=== PATIENT | male | born 1960 | race Caucasian/White ===

== ENCOUNTER 2025-06-06 22:52 | Emergency (ER) | payer OTHER ==
[~2025-06-06] VITALS: Ht 175.3 cm; Wt 107.8 kg
[~2025-06-06 22:52] MED LIST: CARAFATE1 GM PO; GLUCOPHAGE500 MG PO; PROTONIX40 MG PO
[2025-06-06] MEDS ORDERED: CITALOPRAM HBR40 MG PO (23:09)
[2025-06-06] MEDS ORDERED: OMEPRAZOLE20 MG PO (23:09)
[2025-06-06] MEDS ORDERED: METFORMIN HCL500 MG PO (23:09)
[2025-06-06] MEDS ORDERED: GABAPENTIN300 MG PO (23:09)
[2025-06-06] MEDS ORDERED: LOSARTAN POTASS25 MG PO (23:09)
[2025-06-06] MEDS ORDERED: PANTOPRAZOLE SODIUM 40 MG/10 ML VIAL IV ONE (23:15)
[2025-06-06] MEDS ORDERED: LIDOCAINE & ANTACID 35 ML BTL PO ONE (23:15)
[2025-06-06] MEDS ORDERED: SUCRALFATE 1 GM TAB PO ONE (23:15)
[2025-06-06 23:36] LABS: BASOPHILS 1.1 % (0.2-1.2); EOSINOPHILS 2.5 % (0.8-7.0); LYMPHOCYTES 25.9 % (21.8-53.1); MCH 31.0 PG (25.7-32.2); MCHC 34.8 g/dL (32.3-36.5); MCV 89.1 fL (79.0-92.2); MONOCYTES 6.5 % (5.3-12.2); NEUTROPHILS 63.9 % (34.0-67.9); RBC 4.39 M/uL (4.63-6.08)
[2025-06-06 23:49] LABS: ALT (SGPT) 49.0 U/L (14-59); AST (SGOT) 20.0 U/L (15-37); GLOMERULAR FILTRATION RATE,EST 74.0 mL/min (>60); PROTEIN, TOTAL 7.3 g/dL (6.4-8.2); UREA NITROGEN 12.0 mg/dL (7-18)
[2025-06-07 00:18] VITALS: BP 148/84
== END 2025-06-07 00:20 | disposition home or self-care (01) ==
LOC: ED 22:52
PROVIDERS: Family Medicine
DX: K29.70 Gastritis, unspecified, without bleeding (principal); I10 Essential (primary) hypertension; E11.9 Type 2 diabetes mellitus without complications; Z79.84 Long term (current) use of oral hypoglycemic drugs; Z79.899 Other long term (current) drug therapy
CPT/HCPCS: 36415; 80053; 83690; 85025; 96374; 99284-25; J2470

== ENCOUNTER 2025-08-01 08:18 | Day surgery (SDC) | payer OTHER ==
[~2025-08-01] VITALS: Ht 172.7 cm; Wt 109.0 kg
[~2025-08-01 08:18] MED LIST changes: +CITALOPRAM HBR40 MG PO; +GABAPENTIN300 MG PO; +IBLOOD GLUCOSE TEST STRIP 1 EA TEST VI PRN; +LACTATED RINGER'S 1,000 ML IV SCH; +LIDOCAINE HCL 1% 5 ML SDV INJ ONE; +LIDOCAINE HCL 2% 5 ML SDV ONE; +LOSARTAN POTASS25 MG PO; +METFORMIN HCL500 MG PO; +OMEPRAZOLE20 MG PO
[2025-08-01 08:30] VITALS: BP 146/62
--- NOTE | 2025-08-01 10:53 | NUR ---
08/01/25 1053 Violette Ponce 1030- PT PRESENTS TO PACU, SEMI KLINE POSITION, SNORING BUT MAINTAINING AIRWAY WITH HEAD POSITIONING, NON REACTIVE TO STIMULUS. LR INFUSING TO RW IV. ABD SOFT, NON DISTENDED. ALL MONITORS IN PLACE. 1037- PT WAKES ON OWN, SURPRISED. REORIENTED TO TIME AND PLACE. DENIES PAIN OR NAUSEA. 1050- PT SAT UP IN BED, ICE WATER PROVIDED. TOLERATING WELL.
[2025-08-01 11:37] VITALS: BP 147/70
--- NOTE | 2025-08-02 18:03 | OR ---
[facility] [address], [place] [address] Signed DATE OF OPERATION: 08/01/2025 SURGEON: Tim Barker DO PREOPERATIVE DIAGNOSIS: Gastroesophageal reflux symptoms. POSTOPERATIVE DIAGNOSES: 1. Gastroesophageal reflux symptoms with LA grade B esophagitis. 2. Bile gastritis. 3. Small gastric ulcerations in the antrum. PROCEDURES PERFORMED: Esophagogastroduodenoscopy with biopsy of the GE junction and gastric body in the region of the distal antrum, in the region of the ulcerations. ANESTHESIA: IV sedation. ESTIMATED BLOOD LOSS: None. DRAINS: None. COMPLICATIONS: None. DESCRIPTION OF PROCEDURE: The patient was brought to the operating room, placed in supine position. After induction of IV sedation through preanesthetized oropharynx and a bite block, the Olympus video endoscope was then introduced into the mouth directed to the length of esophagus into the distal esophagus, LA grade B esophagitis was noted. Biopsies of the GE junction were taken. No ulcerations were appreciated. It should be noted that the bile appeared to be refluxed into the lower esophagus as well. Scope was then brought back into the stomach. Stomach was insufflated. General exploration was carried out. Dark old area of strand blood was appreciated, but no active bleeding sites were noted. The scope was then brought back to the antrum, where some small ulcerations were appreciated with clot, but no evidence of active bleeding were appreciated. The ulcerations were small, less than 2 mm in size. Biopsy at the region of the ulceration Electronically Signed By: TIM BARKER DO 08/02/25 1803 PATIENT NAME: MAURICE MCLAIN OPERATIVE REPORT DATE OF : 62 REPORT #: [id number] PHYSICIAN: TIM BARKER DO PCP: DAVON MORILLO NP REPORT IS CONFIDENTIAL AND NOT TO BE RELEASED WITHOUT AUTHORIZATION [facility] [address], [place] [address] Signed was then taken and passed off the field for pathologic review. The patient was noted to have significant bile gastritis as well with bile refluxing through the pylorus into the stomach. Under direct visualization, scope was then brought through the pylorus into the 1st and 2nd portion of duodenum. No ulcerations or lesions were noted. A significant amount of bile was noted in the 1st and 2nd portion of duodenum as well. The scope was then brought back into the stomach, retroflexed on itself. No hiatal hernia was noted. The entire stomach was thoroughly irrigated and all blood material was then removed. The scope was then placed in neutral position and the stomach was decompressed. Scope was withdrawn in its entirety and he tolerated the procedure well. DO CHU Fischer/SHASHI /[id number] Copies: ~ Electronically Signed By: TIM BARKER DO 08/02/25 1803 PATIENT NAME: MAURICE MCLAIN OPERATIVE REPORT DATE OF : 62 REPORT #: [id number] PHYSICIAN: TIM BARKER DO PCP: DAVON MORILLO NP REPORT IS CONFIDENTIAL AND NOT TO BE RELEASED WITHOUT AUTHORIZATION
--- NOTE | 2025-08-06 18:47 | PATH ---
[facility] [address] [place], [place] [address] Signed SPECIMEN(S): A GE JUNCTION BIOPSY SPECIMEN(S): B ESOPHAGEAL BIOPSY SPECIMEN SOURCE: A. GE JUNCTION BIOPSY B. ESOPHAGEAL BIOPSY CLINICAL HISTORY: Pre-op: GERD. Postop: Mild gastritis, gastric ulcers, esophagitis LA grade B. FINAL PATHOLOGIC DIAGNOSIS: A. Submitted as gastroesophageal junction, biopsy: - No stratified squamous esophageal epithelium identified. - Specimen consists of acid secreting gastric mucosa. - Negative for chronic, acute, and active inflammation. - No H. pylori-like organisms identified on routine HE-stained histologic sections. - Negative for intestinal metaplasia, dysplasia, and malignancy. B. Submitted as esophagus, biopsy: - No stratified squamous esophageal mucosa identified. - Specimen consists of non-acid secreting gastric mucosa with mild superficial vascular congestion. - Negative for chronic, acute, and active inflammation. - No H. pylori-like organisms identified on routine HE-stained histologic sections. - Negative for intestinal metaplasia, dysplasia, and malignancy. [facility] MICROSCOPIC EXAMINATION: Histologic sections of all submitted blocks are examined by light microscopy. These findings, together with the gross examination, support the pathologic diagnosis. GROSS DESCRIPTION: A. The specimen, labeled and designated "Jesus Manuel, P, 1." and designated on the requisition "EG junction biopsy," is received in formalin and consists of one long soft tissue fragment that is 0.4 cm in greatest dimension. The specimen is entirely submitted in (A1). B. The specimen, labeled and designated "Jesus Manuel, P, 2." and designated on the requisition "esophagus biopsy," is received in formalin and consists of two white-long soft tissue fragments that measure PATIENT NAME: MAURICE MCLAIN PATHOLOGY DATE OF : 62 REPORT #: [id number] [facility]YSICIAN: [facility] PCP: DAVON MORILLO NP REPORT IS CONFIDENTIAL AND NOT TO BE RELEASED WITHOUT AUTHORIZATION [facility] [address] [place], [place] [address] Signed 0.1 and 0.3 cm in greatest dimension. The specimen is entirely submitted in (B1). FB (under the direct supervision of a pathologist) The Gross Description was prepared using a voice recognition system. The report was reviewed for accuracy; however, sound-alike word errors, addition and/or deletions may occur. If there are any questions about this report, please contact Client Services. ADDITIONAL NOTES: Immunohistochemical and/or in situ hybridization studies if performed in this case included appropriate positive controls that reacted as expected. This test was developed and its performance characteristics determined by [facility]. It has not been cleared or approved by the U.S. Food and Drug Administration. The FDA has determined that such clearance or approval is not necessary. This test is used for clinical purposes. It should not be regarded as investigational or for research. [facility] is certified under the Clinical Laboratory Improvement Amendments of 1988 (CLIA) as qualified to perform high complexity clinical laboratory testing. PERFORMING LABORATORY: Technical component was performed by [facility], [address] [place] [id number] (CLIA# [id number]). Professional interpretation was performed by [facility], [address] [place] [id number] (CLIA#: [id number]). Diagnostician: Krupa Mejia MD Pathologist Electronically Signed 08/06/2025 Copies: ~ PATIENT NAME: MAURICE MCLAIN PATHOLOGY DATE OF : 62 REPORT #: [id number] PHYSICIAN: GIA FLOOD PCP: DAVON MORILLO NP REPORT IS CONFIDENTIAL AND NOT TO BE RELEASED WITHOUT AUTHORIZATION
== END 2025-08-01 11:05 | disposition home or self-care (01) ==
LOC: DS 08:18
PROVIDERS: ATTEND Surgery
PROC: 0DB68ZX Excision of Stomach, Via Natural or Artificial Opening Endoscopic, Diagnostic (ICD-10-PCS; 2025-08-01)
PROC: 0DB48ZX Excision of Esophagogastric Junction, Via Natural or Artificial Opening Endoscopic, Diagnostic (ICD-10-PCS; principal; 2025-08-01 09:35)
DX: K21.00 Gastro-esophageal reflux disease with esophagitis, without bleeding (principal); K29.70 Gastritis, unspecified, without bleeding; K25.9 Gastric ulcer, unspecified as acute or chronic, without hemorrhage or perforation; I10 Essential (primary) hypertension; E78.5 Hyperlipidemia, unspecified; Z79.899 Other long term (current) drug therapy; Z88.8 Allergy status to other drugs, medicaments and biological substances
CPT/HCPCS: 00731; J2003; J2704; J7121